=== PATIENT | male | born 1985 | race American Indian/Alaskan Native ===

== ENCOUNTER 2016-06-21 20:32 | Emergency (ER) | payer OTHER, MEDICARE, MEDICAID ==
[2016-06-22] MEDS: NORCO 5/325 PO ONE (04:00)
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
[2016-06-22] MEDS: FLEXERIL PO ONE (04:10)
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
[2016-06-22] MEDS: TORADOL IM ONE (04:32)
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
[2016-06-22 06:47] VITALS: BP 119/79
== END 2016-06-22 06:15 | disposition home or self-care (01) ==
LOC: ED 20:32
DX: S16.1XXA Strain of muscle, fascia and tendon at neck level, initial encounter (principal); S29.012A Strain of muscle and tendon of back wall of thorax, initial encounter; M54.5 Low back pain; V49.40XA Driver injured in collision with unspecified motor vehicles in traffic accident, initial encounter; Y93.89 Activity, other specified; Y99.8 Other external cause status; Y92.89 Other specified places as the place of occurrence of the external cause
CPT/HCPCS: 72072; 72100; 72125; 99284; J1885